=== PATIENT | female | born 1960 | race Caucasian/White ===

== ENCOUNTER 2020-09-30 15:30 | Emergency (ER) | payer OTHER, SELFPAY ==
[~2020-09-30] VITALS: Ht 162.6 cm; Wt 75.1 kg
--- NOTE | 2020-09-30 15:40 | NUR ---
CALL X 1, NO ANSWER
[2020-09-30 15:49] VITALS: BP 156/82
--- NOTE | 2020-09-30 17:42 | NUR ---
NO ANSWER IN [facility] @ [phone] SCAN
--- NOTE | 2020-09-30 18:42 | NUR ---
PATIENT WAS CALLED TO REASSES VITALS. PATIENT NIL.
== END 2020-09-30 20:50 | disposition left against medical advice (07) ==
LOC: ED 18:00
DX: R51.9 Headache, unspecified (principal); R11.2 Nausea with vomiting, unspecified; H53.9 Unspecified visual disturbance
CPT/HCPCS: 99281